=== PATIENT | male | born 1955 | race Caucasian/White ===

== ENCOUNTER 2020-08-19 20:52 | Emergency (ER) | payer OTHER ==
[~2020-08-19] VITALS: Ht 167.6 cm; Wt 49.0 kg
[~2020-08-19 20:52] MED LIST: ALOG12.52 PO; ATOR-2 PO; DIPH50CA38 MT; DOCU250C14 MT; FINA5TAB3 MT; GABA-532 MT; HYDR50SY PO; INSU100I28 SQ; METF-414 MT; NICO-645 TP; PERP8TAB6 MT; QUET25TA34 PO; SENN-293 PO; T3 PO; TAMS-11 PO; ZOLP5TAB8 PO
[2020-08-19] MEDS ORDERED: MORPHINE SULFATE 4 MG/ML CPJ (NOT FOR IM USE) IV STA (21:06)
[2020-08-19 21:40] LABS: BASOPHILS % 0.6 % (0.0-2.0); EOSINOPHILS % 2.8 % (0.0-5.0); HEMATOCRIT. 36.8 % (42.0-52.0); HEMOGLOBIN. 12.3 g/dL (14.0-18.0); LYMPHOCYTES % 23.5 % (20.0-50.0); MEAN CORPUSCULAR VOLUME 95.8 fL (80.0-94.0); MEAN PLATELET VOLUME 8.3 fl (7.4-10.4); MONOCYTES % 8.2 % (2.0-8.0); NEUTROPHILS % 64.9 % (40.0-76.0); PLATELET 170 x1000/uL (130-400); RED BLOOD CELL COUNT 3.84 mill/uL (4.7-6.1); RED CELL DISTRIBUTION WIDTH 13.9 % (11.6-14.6)
[2020-08-19 21:45] LABS: CHLORIDE 114 mEq/L (98-107)
[2020-08-19] MEDS ORDERED: MINERAL OIL ENEMA 133ML PR ONE (23:45)
[2020-08-19] MEDS ORDERED: MAGNESIUM CITRATE 300ML SOLUTION PO ONE (23:45)
[2020-08-20] MEDS ORDERED: MORPHINE SULFATE 4 MG/ML CPJ (NOT FOR IM USE) IV ONE (03:15)
[2020-08-20 03:34] VITALS: BP 111/59
== END 2020-08-20 04:00 | disposition home or self-care (01) ==
LOC: ER 20:52
DX: G89.29 Other chronic pain (principal); M79.10 Myalgia, unspecified site; K59.09 Other constipation; F11.10 Opioid abuse, uncomplicated; E11.9 Type 2 diabetes mellitus without complications; F20.9 Schizophrenia, unspecified; F32.9 Major depressive disorder, single episode, unspecified; N40.0 Benign prostatic hyperplasia without lower urinary tract symptoms; M19.90 Unspecified osteoarthritis, unspecified site; Z79.4 Long term (current) use of insulin; Z88.8 Allergy status to other drugs, medicaments and biological substances
CPT/HCPCS: 36415; 74176; 80053; 85025; 96374; 96376; 99284; J2270; Z7610

== ENCOUNTER 2020-08-27 23:34 | Emergency (ER) | payer OTHER ==
[~2020-08-27] VITALS: Ht 167.6 cm; Wt 50.0 kg
[2020-08-27] MEDS ORDERED: KETOROLAC 30MG/ML VIAL IV STA (23:47)
[2020-08-27] MEDS ORDERED: ONDANSETRON HCL 4MG/2ML INJ IV STA (23:47)
[2020-08-28] MEDS ORDERED: SODIUM CHLORIDE 0.9% 1,000 ML IV ONE
[2020-08-28 00:56] LABS: BASOPHILS % 0.6 % (0.0-2.0); HEMATOCRIT. 35.1 % (42.0-52.0); HEMOGLOBIN. 12.4 g/dL (14.0-18.0); LYMPHOCYTES % 23.8 % (20.0-50.0); MEAN CORPUSCULAR HEMOGLOBIN 32.8 pg (28.0-32.0); MEAN CORPUSCULAR VOLUME 93.1 fL (80.0-94.0); MEAN PLATELET VOLUME 7.6 fl (7.4-10.4); MONOCYTES % 7.4 % (2.0-8.0); NEUTROPHILS % 65.2 % (40.0-76.0); PLATELET 188 x1000/uL (130-400); RED BLOOD CELL COUNT 3.77 mill/uL (4.7-6.1); RED CELL DISTRIBUTION WIDTH 13.3 % (11.6-14.6)
[2020-08-28 01:00] LABS: CHLORIDE 105 mEq/L (98-107)
[2020-08-28] MEDS ORDERED: MORPHINE SULFATE 4 MG/ML CPJ (NOT FOR IM USE) IV ONE (03:45)
[2020-08-28] MEDS ORDERED: GABA300C MT (05:32)
[2020-08-28 05:54] VITALS: BP 104/43
== END 2020-08-28 06:55 | disposition home or self-care (01) ==
LOC: ER 23:34
DX: G89.29 Other chronic pain (principal); R53.1 Weakness; E11.40 Type 2 diabetes mellitus with diabetic neuropathy, unspecified; F32.9 Major depressive disorder, single episode, unspecified; E78.00 Pure hypercholesterolemia, unspecified; F20.9 Schizophrenia, unspecified; Z79.899 Other long term (current) drug therapy
CPT/HCPCS: 36415; 71045; 80053; 85025; 93005; 96361; 96374; 96375; 99285; J1885; J2270; J2405

== ENCOUNTER 2020-09-01 16:46 | Inpatient (IN) | payer OTHER ==
[~2020-09-01] VITALS: Ht 167.6 cm; Wt 50.8 kg
[~2020-09-01 16:46] MED LIST changes: +GABA300C MT
[2020-09-01] MEDS ORDERED: SODIUM CHLORIDE 0.9% 1,000 ML IV ONE (17:45)
[2020-09-01 17:47] LABS: BASOPHILS % 1.1 % (0.0-2.0); EOSINOPHILS % 2.2 % (0.0-5.0); HEMATOCRIT. 36.5 % (42.0-52.0); HEMOGLOBIN. 12.5 g/dL (14.0-18.0); LYMPHOCYTES % 18.9 % (20.0-50.0); MEAN CORPUSCULAR HEMOGLOBIN 32.4 pg (28.0-32.0); MEAN CORPUSCULAR VOLUME 94.8 fL (80.0-94.0); MEAN PLATELET VOLUME 7.9 fl (7.4-10.4); MONOCYTES % 5.9 % (2.0-8.0); NEUTROPHILS % 71.9 % (40.0-76.0); PLATELET 182 x1000/uL (130-400); RED BLOOD CELL COUNT 3.85 mill/uL (4.7-6.1); RED CELL DISTRIBUTION WIDTH 13.6 % (11.6-14.6)
[2020-09-01 17:48] LABS: CHLORIDE 109 mEq/L (98-107)
[2020-09-01 17:51] LABS: INR 0.9
[2020-09-01 17:52] LABS: ETHANOL BLOOD < 10 mg/dL
[2020-09-01 18:22] LABS: CLARITY URINE CLEAR (CLEAR); COLOR URINE YELLOW (YELLOW); KETONES URINE NEGATIVE (NEGATIVE); LEUKOCYTE ESTERASE URINE NEGATIVE (NEGATIVE); NITRITE URINE NEGATIVE (NEGATIVE); OCCULT BLOOD URINE NEGATIVE (NEGATIVE); PH URINE 7.5 (4.5-8.0); PROTEIN URINE NEGATIVE (NEGATIVE); SPECIFIC GRAVITY URINE 1.034 (1.005-1.030)
[2020-09-01 18:32] LABS: *AMPHETAMINES SCREEN URINE NEGATIVE (NEGATIVE); *BARBITURATES SCREEN URINE NEGATIVE (NEGATIVE); *BENZODIAZEPINES SCREEN URINE NEGATIVE (NEGATIVE); *COCAINE SCREEN URINE NEGATIVE (NEGATIVE); METHADONE URINE SCREEN NEGATIVE (NEGATIVE)
[2020-09-01 18:33] LABS: CANNABINOID URINE SCREEN PRESUMTIVE POSITIVE (NEGATIVE); OPIATES URINE SCREEN PRESUMTIVE POSITIVE (NEGATIVE); PHENCYCLIDINE URINE SCREEN NEGATIVE (NEGATIVE)
[2020-09-01] MEDS ORDERED: ONDANSETRON HCL 4MG/2ML INJ IV PRN (21:15)
[2020-09-01] MEDS ORDERED: IPRATROPIUM/ALBUTEROL 0.5-3(2.5)MG/3ML NEB NEB PRN (21:15)
[2020-09-01] MEDS ORDERED: HYDROCODONE/ACETAMINOPHEN 5/325MG TABLET PO PRN (21:15)
[2020-09-01] MEDS ORDERED: MAGNESIUM/ALUMINUM HYDROXIDE/SIMETHICONE 30ML UDC PO PRN (21:15)
[2020-09-01] MEDS ORDERED: CLONIDINE 0.1MG TABLET PO PRN (21:15)
[2020-09-01] MEDS: ENOXAPARIN 40MG/0.4ML SYR SUBCUT SCH (21:30)
[2020-09-01 22:59] LABS: CREATINE KINASE 38 IU/L (39-308)
[2020-09-01 23:00] VITALS: BP 105/53
[2020-09-01 23:00] LABS: CREATINE KINASE MB FRACTION 1.2 ng/mL (0.5-3.6)
[2020-09-02] VITALS (7 sets, daily range): BP systolic 95–109; BP diastolic 40–62
[2020-09-02] MEDS: SODIUM CHLORIDE 0.9% 1,000 ML IV SCH ×3 (05:17→23:55)
[2020-09-02 05:54] LABS: CHLORIDE 111 mEq/L (98-107)
[2020-09-02 05:55] LABS: BASOPHILS % 0.7 % (0.0-2.0); EOSINOPHILS % 2.5 % (0.0-5.0); HEMOGLOBIN. 11.3 g/dL (14.0-18.0); LYMPHOCYTES % 20.5 % (20.0-50.0); MEAN CORPUSCULAR HEMOGLOBIN 32.8 pg (28.0-32.0); MEAN CORPUSCULAR VOLUME 92.8 fL (80.0-94.0); MEAN PLATELET VOLUME 8.4 fl (7.4-10.4); MONOCYTES % 7.2 % (2.0-8.0); NEUTROPHILS % 69.1 % (40.0-76.0); PLATELET 172 x1000/uL (130-400); RED BLOOD CELL COUNT 3.45 mill/uL (4.7-6.1); RED CELL DISTRIBUTION WIDTH 13.3 % (11.6-14.6)
[2020-09-02 06:05] LABS: CREATINE KINASE 36 IU/L (39-308); LDL CHOLESTEROL 67 mg/dL (5-100)
[2020-09-02 06:06] LABS: HDL CHOLESTEROL 40 mg/dL (40-59)
[2020-09-02 06:10] LABS: CREATINE KINASE MB FRACTION 1.1 ng/mL (0.5-3.6)
[2020-09-02] MEDS ORDERED: MORPHINE SULFATE 2 MG/ML CPJ (NOT FOR IM USE) IV PRN ×2 (10:30→18:30)
[2020-09-02] MEDS ORDERED: OXYCODONE HCL/ACETAMINOPHEN 5/325MG TABLET PO PRN (14:30)
[2020-09-02] MEDS ORDERED: TRAMADOL 50MG TABLET PO PRN (14:30)
[2020-09-02] MEDS ORDERED: ZOLPIDEM TARTRATE 5MG TABLET PO PRN (15:00)
[2020-09-02] MEDS ORDERED: NON FORMULARY PATIENT HOME MED XX SCH (15:00)
[2020-09-02] MEDS: POLYETHYLENE GLYCOL 3350 (17GM) 1 DOSE PACK PO SCH (15:34)
[2020-09-02] MEDS: LINAGLIPTIN 5MG TABLET PO SCH (15:37)
[2020-09-02] MEDS: TAMSULOSIN HCL 0.4MG SR CAPSULE PO SCH (15:38)
[2020-09-02] MEDS: FINASTERIDE 5MG TABLET PO SCH (15:38)
[2020-09-02] MEDS: GABAPENTIN 300MG CAPSULE PO SCH ×2 (15:38→21:51)
[2020-09-02] MEDS: ENOXAPARIN 40MG/0.4ML SYR SUBCUT SCH (21:00)
[2020-09-02] MEDS: QUETIAPINE FUMARATE 25MG TABLET PO SCH (21:51)
[2020-09-02] MEDS: ATORVASTATIN CALCIUM 40MG TABLET PO SCH (21:51)
[2020-09-02] MEDS: INSULIN GLARGINE UD 100 UNITS/ML SYR SUBCUT SCH (21:54)
[2020-09-02] MEDS: PERPHENAZINE 2 MG PO SCH (22:30)
[2020-09-03] VITALS: BP 102/66
[2020-09-03] MEDS ORDERED: DEXTROSE 50% WATER 50ML SYRINGE IV PRN
[2020-09-03 04:00] VITALS: BP 99/58
[2020-09-03] MEDS: GABAPENTIN 300MG CAPSULE PO SCH ×3 (05:48→22:15)
[2020-09-03] MEDS: ACETAMINOPHEN 325MG TABLET PO PRN ×2 (05:48→12:03)
[2020-09-03 06:14] LABS: TOTAL IRON BINDING CAPACITY 200 ug/dL (250-450)
[2020-09-03] MEDS: BLOOD SUGAR DIAGNOSTIC STRIP TEST SCH ×4 (06:18→21:00)
[2020-09-03 06:24] LABS: FERRITIN 76 ng/mL (22-322)
[2020-09-03 06:37] LABS: VITAMIN B12 SERUM 591 pg/mL (211-911)
[2020-09-03 06:51] LABS: FOLIC ACID (FOLATE) SERUM > 20.00 ng/mL (>5.38)
[2020-09-03] MEDS: INSULIN LISPRO 100 UNITS/ML SUBCUT SCH ×4 (07:50→21:00)
[2020-09-03 08:00] VITALS: BP 91/57
[2020-09-03] MEDS: LINAGLIPTIN 5MG TABLET PO SCH (10:08)
[2020-09-03] MEDS: FINASTERIDE 5MG TABLET PO SCH (10:08)
[2020-09-03] MEDS: POLYETHYLENE GLYCOL 3350 (17GM) 1 DOSE PACK PO SCH (10:09)
[2020-09-03] MEDS: TAMSULOSIN HCL 0.4MG SR CAPSULE PO SCH (10:09)
[2020-09-03] MEDS: INSULIN GLARGINE UD 100 UNITS/ML SYR SUBCUT SCH ×2 (10:11→22:28)
[2020-09-03] MEDS ORDERED: SODIUM CHLORIDE 0.9% 500 ML IV SCH ×2 (10:15→10:20)
[2020-09-03 12:00] VITALS: BP 100/37
[2020-09-03] MEDS: SODIUM CHLORIDE 0.9% 1,000 ML IV SCH (14:02)
[2020-09-03] MEDS: MUPIROCIN 2% OINT 22GM TOP SCH (14:02)
[2020-09-03 16:00] VITALS: BP 95/42
[2020-09-03 20:00] VITALS: BP 109/64
[2020-09-03] MEDS: PERPHENAZINE 2 MG PO SCH (22:14)
[2020-09-03] MEDS: ATORVASTATIN CALCIUM 40MG TABLET PO SCH (22:15)
[2020-09-03] MEDS: QUETIAPINE FUMARATE 25MG TABLET PO SCH (22:15)
[2020-09-03] MEDS: ENOXAPARIN 40MG/0.4ML SYR SUBCUT SCH (22:33)
[2020-09-04] VITALS: BP 115/67
[2020-09-04] MEDS: SODIUM CHLORIDE 0.9% 1,000 ML IV SCH ×2 (03:10→15:55)
[2020-09-04 04:00] VITALS: BP 112/63
[2020-09-04] MEDS: ACETAMINOPHEN 325MG TABLET PO PRN ×2 (04:20→10:27)
[2020-09-04 05:08] LABS: HIV SCREEN 4G Non Reactive (Non Reactive)
[2020-09-04] MEDS: GABAPENTIN 300MG CAPSULE PO SCH ×2 (05:48→13:55)
[2020-09-04] MEDS: INSULIN LISPRO 100 UNITS/ML SUBCUT SCH ×4 (06:35→21:00)
[2020-09-04] MEDS: BLOOD SUGAR DIAGNOSTIC STRIP TEST SCH ×4 (06:35→21:50)
[2020-09-04 07:31] LABS: BASOPHILS % 0.5 % (0.0-2.0); EOSINOPHILS % 0.7 % (0.0-5.0); HEMATOCRIT. 35.4 % (42.0-52.0); MEAN CORPUSCULAR HEMOGLOBIN 32.2 pg (28.0-32.0); MEAN CORPUSCULAR VOLUME 94.9 fL (80.0-94.0); MEAN PLATELET VOLUME 8.4 fl (7.4-10.4); MONOCYTES % 5.5 % (2.0-8.0); NEUTROPHILS % 85.3 % (40.0-76.0); PLATELET 193 x1000/uL (130-400); RED BLOOD CELL COUNT 3.73 mill/uL (4.7-6.1); RED CELL DISTRIBUTION WIDTH 13.2 % (11.6-14.6)
[2020-09-04 07:54] LABS: CHLORIDE 107 mEq/L (98-107)
[2020-09-04 08:00] VITALS: BP 89/44
[2020-09-04] MEDS: MUPIROCIN 2% OINT 22GM TOP SCH (09:25)
[2020-09-04] MEDS: TAMSULOSIN HCL 0.4MG SR CAPSULE PO SCH (09:25)
[2020-09-04] MEDS: FINASTERIDE 5MG TABLET PO SCH (09:25)
[2020-09-04] MEDS: LINAGLIPTIN 5MG TABLET PO SCH (09:25)
[2020-09-04] MEDS: POLYETHYLENE GLYCOL 3350 (17GM) 1 DOSE PACK PO SCH (09:25)
[2020-09-04] MEDS ORDERED: SODIUM CHLORIDE 0.9% 500 ML IV ONE ×2 (10:00)
[2020-09-04] MEDS: INSULIN GLARGINE UD 100 UNITS/ML SYR SUBCUT SCH ×2 (10:30→21:57)
[2020-09-04 12:00] VITALS: BP 97/48
[2020-09-04] MEDS: MIDODRINE HCL 5MG TABLET PO SCH ×2 (13:55→17:28)
[2020-09-04 16:00] VITALS: BP 95/59
[2020-09-04] MEDS ORDERED: HYDROCODONE/ACETAMINOPHEN 10/325MG TABLET PO PRN (16:15)
[2020-09-04] MEDS ORDERED: METHOCARBAMOL 500MG TABLET PO PRN (16:15)
[2020-09-04 20:00] VITALS: BP 91/52
[2020-09-04] MEDS: PERPHENAZINE 2 MG PO SCH (21:49)
[2020-09-04] MEDS: ENOXAPARIN 30MG/0.3ML SYR SUBCUT SCH (21:49)
[2020-09-04] MEDS: ATORVASTATIN CALCIUM 40MG TABLET PO SCH (21:50)
[2020-09-04] MEDS: QUETIAPINE FUMARATE 25MG TABLET PO SCH (21:50)
[2020-09-04] MEDS: PREGABALIN 75MG CAPSULE PO SCH (21:50)
[2020-09-05] VITALS: BP 100/53
[2020-09-05 04:00] VITALS: BP 125/60
[2020-09-05] MEDS: BLOOD SUGAR DIAGNOSTIC STRIP TEST SCH ×4 (05:17→21:00)
[2020-09-05] MEDS: INSULIN LISPRO 100 UNITS/ML SUBCUT SCH ×4 (05:17→23:05)
[2020-09-05] MEDS: SODIUM CHLORIDE 0.9% 1,000 ML IV SCH ×2 (05:22→17:44)
[2020-09-05 07:49] LABS: CHLORIDE 111 mEq/L (98-107)
[2020-09-05 07:58] LABS: BASOPHILS % 0.3 % (0.0-2.0); EOSINOPHILS % 1.5 % (0.0-5.0); HEMOGLOBIN. 10.4 g/dL (14.0-18.0); LYMPHOCYTES % 12.4 % (20.0-50.0); MEAN CORPUSCULAR HEMOGLOBIN 32.8 pg (28.0-32.0); MEAN CORPUSCULAR VOLUME 94.8 fL (80.0-94.0); MEAN PLATELET VOLUME 8.4 fl (7.4-10.4); MONOCYTES % 8.5 % (2.0-8.0); NEUTROPHILS % 77.3 % (40.0-76.0); PLATELET 180 x1000/uL (130-400); RED BLOOD CELL COUNT 3.17 mill/uL (4.7-6.1); RED CELL DISTRIBUTION WIDTH 13.3 % (11.6-14.6)
[2020-09-05 08:00] VITALS: BP 100/51
[2020-09-05] MEDS: POLYETHYLENE GLYCOL 3350 (17GM) 1 DOSE PACK PO SCH (09:00)
[2020-09-05] MEDS: MIDODRINE HCL 5MG TABLET PO SCH ×3 (09:03→17:44)
[2020-09-05] MEDS: MUPIROCIN 2% OINT 22GM TOP SCH (09:04)
[2020-09-05] MEDS: PREGABALIN 75MG CAPSULE PO SCH ×2 (09:04→22:54)
[2020-09-05] MEDS: TAMSULOSIN HCL 0.4MG SR CAPSULE PO SCH (09:04)
[2020-09-05] MEDS: FINASTERIDE 5MG TABLET PO SCH (09:04)
[2020-09-05] MEDS: LINAGLIPTIN 5MG TABLET PO SCH (10:17)
[2020-09-05] MEDS: INSULIN GLARGINE UD 100 UNITS/ML SYR SUBCUT SCH ×2 (10:19→23:06)
[2020-09-05 12:12] VITALS: BP 99/54
[2020-09-05] MEDS: DEXAMETHASONE 4MG/ML 1ML VIAL IV SCH ×2 (12:45→17:44)
[2020-09-05 16:00] VITALS: BP 110/62
[2020-09-05 20:00] VITALS: BP 107/44
[2020-09-05] MEDS: QUETIAPINE FUMARATE 25MG TABLET PO SCH (22:54)
[2020-09-05] MEDS: ATORVASTATIN CALCIUM 40MG TABLET PO SCH (22:54)
[2020-09-05] MEDS: PERPHENAZINE 2 MG PO SCH (22:54)
[2020-09-05] MEDS: ENOXAPARIN 30MG/0.3ML SYR SUBCUT SCH (22:55)
[2020-09-05] MEDS: DOCUSATE SODIUM 100MG CAPSULE PO PRN (23:06)
[2020-09-06] VITALS: BP 106/49
[2020-09-06] MEDS: DEXAMETHASONE 4MG/ML 1ML VIAL IV SCH ×4 (00:54→17:10)
[2020-09-06 04:00] VITALS: BP 106/63
[2020-09-06] MEDS: BLOOD SUGAR DIAGNOSTIC STRIP TEST SCH ×4 (06:16→21:51)
[2020-09-06] MEDS: SODIUM CHLORIDE 0.9% 1,000 ML IV SCH ×2 (06:20→22:02)
[2020-09-06 06:44] LABS: HEMATOCRIT. 31.6 % (42.0-52.0); HEMOGLOBIN. 10.9 g/dL (14.0-18.0); MEAN CORPUSCULAR HEMOGLOBIN 32.3 pg (28.0-32.0); MEAN CORPUSCULAR VOLUME 93.4 fL (80.0-94.0); MEAN PLATELET VOLUME 8.4 fl (7.4-10.4); PLATELET 193 x1000/uL (130-400); RED BLOOD CELL COUNT 3.38 mill/uL (4.7-6.1); RED CELL DISTRIBUTION WIDTH 13.5 % (11.6-14.6)
[2020-09-06 07:06] LABS: CHLORIDE 107 mEq/L (98-107)
[2020-09-06 08:00] VITALS: BP 113/58
[2020-09-06] MEDS: INSULIN LISPRO 100 UNITS/ML SUBCUT SCH ×4 (08:04→21:49)
[2020-09-06] MEDS: PREGABALIN 75MG CAPSULE PO SCH ×2 (08:05→21:46)
[2020-09-06] MEDS: MIDODRINE HCL 5MG TABLET PO SCH ×3 (08:05→16:16)
[2020-09-06] MEDS: POLYETHYLENE GLYCOL 3350 (17GM) 1 DOSE PACK PO SCH (08:05)
[2020-09-06] MEDS: LINAGLIPTIN 5MG TABLET PO SCH (08:06)
[2020-09-06] MEDS: TAMSULOSIN HCL 0.4MG SR CAPSULE PO SCH (08:06)
[2020-09-06] MEDS: FINASTERIDE 5MG TABLET PO SCH (08:06)
[2020-09-06] MEDS: MUPIROCIN 2% OINT 22GM TOP SCH (08:06)
[2020-09-06] MEDS: INSULIN GLARGINE UD 100 UNITS/ML SYR SUBCUT SCH ×2 (11:35→22:24)
[2020-09-06 12:00] VITALS: BP 99/58
[2020-09-06 13:28] LABS: ATYPICAL LYMPHOCYTES 1; PLATELET ESTIMATE NORMAL
[2020-09-06 16:00] VITALS: BP 98/60
[2020-09-06 20:00] VITALS: BP 110/64
[2020-09-06] MEDS: ENOXAPARIN 30MG/0.3ML SYR SUBCUT SCH (20:03)
[2020-09-06] MEDS: ATORVASTATIN CALCIUM 40MG TABLET PO SCH (21:46)
[2020-09-06] MEDS: PERPHENAZINE 2 MG PO SCH (21:46)
[2020-09-06] MEDS: QUETIAPINE FUMARATE 25MG TABLET PO SCH (21:46)
[2020-09-07] VITALS: BP 94/52
[2020-09-07] MEDS: DEXAMETHASONE 4MG/ML 1ML VIAL IV SCH ×4 (00:04→18:06)
[2020-09-07] MEDS: BLOOD SUGAR DIAGNOSTIC STRIP TEST SCH ×3 (06:15→17:39)
[2020-09-07 06:33] LABS: CHLORIDE 107 mEq/L (98-107)
[2020-09-07] MEDS: INSULIN LISPRO 100 UNITS/ML SUBCUT SCH ×3 (06:36→17:40)
[2020-09-07] MEDS: DOCUSATE SODIUM 100MG CAPSULE PO PRN (06:36)
[2020-09-07] MEDS: SODIUM CHLORIDE 0.9% 1,000 ML IV SCH (06:37)
[2020-09-07 06:38] LABS: EOSINOPHILS % 0.1 % (0.0-5.0); HEMATOCRIT. 31.7 % (42.0-52.0); HEMOGLOBIN. 10.7 g/dL (14.0-18.0); LYMPHOCYTES % 7.7 % (20.0-50.0); MEAN CORPUSCULAR HEMOGLOBIN 31.7 pg (28.0-32.0); MEAN CORPUSCULAR VOLUME 93.7 fL (80.0-94.0); MEAN PLATELET VOLUME 8.5 fl (7.4-10.4); MONOCYTES % 4.3 % (2.0-8.0); NEUTROPHILS % 87.9 % (40.0-76.0); PLATELET 216 x1000/uL (130-400); RED BLOOD CELL COUNT 3.38 mill/uL (4.7-6.1); RED CELL DISTRIBUTION WIDTH 13.4 % (11.6-14.6)
[2020-09-07 08:00] VITALS: BP 96/52
[2020-09-07] MEDS: PREGABALIN 75MG CAPSULE PO SCH (09:41)
[2020-09-07] MEDS: MUPIROCIN 2% OINT 22GM TOP SCH (09:41)
[2020-09-07] MEDS: POLYETHYLENE GLYCOL 3350 (17GM) 1 DOSE PACK PO SCH (09:41)
[2020-09-07] MEDS: FINASTERIDE 5MG TABLET PO SCH (09:42)
[2020-09-07] MEDS: MIDODRINE HCL 5MG TABLET PO SCH ×3 (09:42→18:06)
[2020-09-07] MEDS: TAMSULOSIN HCL 0.4MG SR CAPSULE PO SCH (09:42)
[2020-09-07] MEDS: LINAGLIPTIN 5MG TABLET PO SCH (09:43)
[2020-09-07] MEDS: INSULIN GLARGINE UD 100 UNITS/ML SYR SUBCUT SCH (10:17)
[2020-09-07 12:00] VITALS: BP 99/46
[2020-09-07] MEDS ORDERED: PREG75CA PO (12:41)
[2020-09-07] MEDS ORDERED: MIDO5TAB4 PO (12:41)
[2020-09-07] MEDS ORDERED: HYDR-4009 PO (12:41)
[2020-09-07 16:00] VITALS: BP 93/45
[2020-09-07 17:15] VITALS: BP 96/45
== END 2020-09-07 19:37 | DRG 52 ==
LOC: ER 16:46 → 6WST 19:24 → EDBEDREQTM 19:40 → EDBEDREQ 19:40 → ENRESERV 20:22
PROVIDERS: ADMIT Internal Medicine; ATTEND Internal Medicine
DX: G93.40 Encephalopathy, unspecified (principal); R64 Cachexia; M47.12 Other spondylosis with myelopathy, cervical region; E11.42 Type 2 diabetes mellitus with diabetic polyneuropathy; M48.02 Spinal stenosis, cervical region; F20.9 Schizophrenia, unspecified; D64.9 Anemia, unspecified; F12.90 Cannabis use, unspecified, uncomplicated; K59.00 Constipation, unspecified; N40.0 Benign prostatic hyperplasia without lower urinary tract symptoms; Z20.822 Contact with and (suspected) exposure to COVID-19; R62.7 Adult failure to thrive; F32.9 Major depressive disorder, single episode, unspecified; G89.29 Other chronic pain; L05.91 Pilonidal cyst without abscess; L29.8 Other pruritus; M50.10 Cervical disc disorder with radiculopathy, unspecified cervical region; M47.22 Other spondylosis with radiculopathy, cervical region; M47.26 Other spondylosis with radiculopathy, lumbar region; M51.16 Intervertebral disc disorders with radiculopathy, lumbar region; M47.814 Spondylosis without myelopathy or radiculopathy, thoracic region; M51.34 Other intervertebral disc degeneration, thoracic region; M48.061 Spinal stenosis, lumbar region without neurogenic claudication; M50.01 Cervical disc disorder with myelopathy, high cervical region; M50.11 Cervical disc disorder with radiculopathy, high cervical region; I10 Essential (primary) hypertension; Z79.4 Long term (current) use of insulin; Z87.891 Personal history of nicotine dependence; Z79.899 Other long term (current) drug therapy; Z68.1 Body mass index [BMI] 19.9 or less, adult; L98.9 Disorder of the skin and subcutaneous tissue, unspecified
CPT/HCPCS: 36415; 70551; 71045; 72141; 72146; 72148; 74176; 80048; 80053; 80061; 80305; 80320; 81003; 82550; 82553; 82607; 82728; 82746; 82962; 83036; 83540; 83550; 83735; 83880; 84145; 84443; 84484; 85025; 86850; 86900; 87389; 87426; 93005; 93970; 97116; 97162; 97166; 97530; 99285; J1100; J1650; J1815; J2270; J7030; J7040; J7042; Q0175; G0480